=== PATIENT | male | born 2000 | race Caucasian/White ===

== ENCOUNTER 2018-10-04 00:59 | Emergency (ER) | payer OTHER ==
[2018-10-04] MEDS ORDERED: Ibuprofen TAB* 600 MG PO ONE (01:47)
--- NOTE | 2018-10-04 02:05 | ED ---
Upper Extremity Pain - HPI Summary HPI Summary: 18-year-old male presents with left pinky finger pain today. He states that he is actually closed his hand in door. He states he limited range of motion of finger. No numbness or tingling. denies any other injury. He is left-handed. Is currently a student. Has no medical conditions. took some Aleve for pain and pain is 6 out of 10. no previous fracture to the area. - History of Current Complaint Chief Complaint: EDExtremityUpper Stated Complaint: "POS BREAK OF L FINGER" PER PT Time Seen by Provider: 10/04/18 01:51 - Allergies/Home Medications Allergies/Adverse Reactions: Allergies Allergy/AdvReac Type Severity Reaction Status Date / Time No Known Allergies Allergy Verified 10/04/18 01:08 Home Medications: Home Medications Duloxetine HCl [Cymbalta] 50 mg PO DAILY 10/04/18 [History Confirmed 10/04/18] PMH/Surg Hx/FS Hx/Imm Hx Endocrine/Hematology History: Denies: Hx Anticoagulant Therapy Respiratory History: Denies: Hx Asthma Infectious Disease History: No Infectious Disease History: Denies: Traveled Outside the [place] in Last 30 Days - Family History Known Family History: Positive: Non-Contributory - Social History Alcohol Use: Occasionally Substance Use Type: Reports: None Smoking Status (MU): Never Smoked Tobacco Review of Systems Negative: Fever Negative: Chest Pain Negative: Shortness Of Breath Positive: Myalgia - left pinky finger All Other Systems Reviewed And Are Negative: Yes Physical Exam Triage Information Reviewed: Yes Vital Signs On Initial Exam: Initial Vitals Temp Pulse Resp BP Pulse Ox 98.7 F 98 16 154/91 98 10/04/18 01:06 10/04/18 01:06 10/04/18 01:06 10/04/18 01:06 10/04/18 01:06 Vital Signs Reviewed: Yes Appearance: Positive: Well-Appearing Skin: Positive: Warm, Dry Head/Face: Positive: Normal Head/Face Inspection Eyes: Positive: Normal, Conjunctiva Clear ENT: Positive: Pharynx normal Respiratory/Lung Sounds: Positive: Clear to Auscultation, Breath Sounds Present Cardiovascular: Positive: Normal, RRR Musculoskeletal: Positive: Limited @ - left pinky, Edema Left - 5th metacarpel, Other - good pulses, capillary refill<2 secs Neurological: Positive: Normal Psychiatric: Positive: Normal Procedures - Splinting left hand Location: left hand Hand-Made Type: orthoglass Splint: ulnar Pre-Proc Neuro Vasc Exam: normal Post-Proc Neuro Vasc Exam: normal Diagnostics - Vital Signs Vital Signs Temp Pulse Resp BP Pulse Ox 10/04/18 01:06 98.7 F 98 16 154/91 98 - Laboratory Lab Statement: Any lab studies that have been ordered have been reviewed, and results considered in the medical decision making process. - Radiology hand Radiology Interpretation Completed By: ED Physician Summary of Radiographic Findings: minimial displaced 5th metacarpel fracture Course/Dx - Course Course Of Treatment: 18-year-old male presents with left pinky finger pain today. He states that he is actually closed his hand in door. He states he limited range of motion of finger. No numbness or tingling. denies any other injury. He is left-handed. Is currently a student. Has no medical conditions. took some Aleve for pain and pain is 6 out of 10. On exam has edema noted to the fifth metacarpal. Neurovascular intact. X-ray shows a boxer fracture. did apply some manual traction to the fracture in hopes to better align it. Place patient in ulnar gutter splint. Told to practice rice. Told to follow-up with orthopedic. Patient understands agrees with plan. - Diagnoses Differential Diagnosis/HQI/PQRI: Positive: Fracture (Closed), Strain, Sprain Provider Diagnoses: Fracture of fifth metacarpal bone of left hand Discharge - Sign-Out/Discharge Documenting (check all that apply): Patient Departure Patient Received Moderate/Deep Sedation with Procedure: No - Discharge Plan Condition: Improved Disposition: HOME Patient Education Materials: Boxer Fracture (ED) Referrals: Leobardo Hsu MD [Medical Doctor] - Additional Instructions: Keep splint on area and keep dry Call ortho office tomorrow to set up appointment for follow up Use ibuprofen or tyenlol for pain every 6 hours Ice, elevate Return to ED if develop any new or worsening symptoms - Billing Disposition and Condition Condition: IMPROVED Disposition: Home
[2018-10-04 02:20] VITALS: BP 131/79
== END 2018-10-04 02:18 | disposition home or self-care (01) ==
LOC: ED 00:59
DX: S62.307A Unspecified fracture of fifth metacarpal bone, left hand, initial encounter for closed fracture (principal); W23.0XXA Caught, crushed, jammed, or pinched between moving objects, initial encounter; Y92.9 Unspecified place or not applicable
CPT/HCPCS: 99281